=== PATIENT | male | born 1990 | race Caucasian/White ===

== ENCOUNTER → 2017-04-27 | Outpatient (CLI) | payer OTHER ==
--- NOTE | 2017-04-27 14:14 | CT ---
EXAMINATION TYPE: CT abdomen pelvis w con DATE OF EXAM: 04/27/2017 COMPARISON: NONE INDICATION: Gastrointestinal stromal tumor DLP: 475.30 mGycm, Automated exposure control for dose reduction was used. CONTRAST: 100 mL of Omnipaque 300. Study performed with Oral Contrast TECHNIQUE: Axial images were obtained from above the diaphragm to the pubic rami in the axial plane a t 5 mm thick sections. Reconstructed images are reviewed on the computer in the coronal plane. FINDINGS: Limited CT sections are obtained the lung bases. The lung bases are clear. CT ABDOMEN: Stomach is incompletely distended with air and fluid. Wall thickening within the fundus a nd gastric cardia are not excluded. There is postsurgical changes in this region. Consider direct vis ualization. Liver: Normal Spleen: Normal Pancreas: Normal Adrenal glands: The adrenal glands are normal. Gallbladder: Normal Kidneys: No masses are evident. No hydronephrosis is present. No cysts are present. Delayed images were obtained through the kidneys, which remain unremarkable. Aorta: Vascular calcification is within the aorta. Inferior vena cava: Normal. CT PELVIS: Loops of bowel within the abdomen and pelvis are normal. There are loops of bowel which are incom pletely distended or lack oral contrast limiting their evaluation. No suspicious masses or thickening within loops of bowel are evident. Appendix: Not identified Urinary bladder: Normal. Genitourinary structures: Prostate appears unremarkable. Osseous structures: No suspicious lytic or sclerotic lesions. IMPRESSIONS: 1. There may be some thickening of the gastric wall in the fundus gastric cardia region. This may be due to incomplete distention. Consider direct visualization.
== END | disposition home or self-care (01) ==
LOC: RADCTMAIN 11:04
PROVIDERS: ATTEND Internal Medicine Hematology & Oncology
DX: C49.9 Malignant neoplasm of connective and soft tissue, unspecified (principal)
CPT/HCPCS: 74177; Q9967

== ENCOUNTER 2020-11-05 21:04 | Inpatient (IN) | payer MEDICAID, OTHER ==
--- NOTE | 2020-11-05 21:57 | ED ---
Psych HPI - General Chief Complaint: Psychiatric Symptoms Stated Complaint: Mental health Time Seen by Provider: 11/05/20 21:56 Source: patient, RN notes reviewed, old records reviewed Mode of arrival: ambulatory Limitations: no limitations - History of Present Illness Initial Comments: This is a 30-year-old male to the ER for evaluation patient presents today for evaluation regards to psychiatric evaluation. Patient presents under suicidal thoughts. Patient presents by the combined rail operator under petition for psychiatric evaluation and treatment MD Complaint: suicidal ideation, feels depressed -: unknown Associated Psychiatric Symptoms: depression, suicidal ideation History of same: Yes Quality: constant Improves With: none Worsens With: none Context: significant life stressor Associated Symptoms: denies other symptoms Treatments Prior to Arrival: placed on mental health hold If Self Harm: admits thoughts of self harm - Related Data Home Medications Medication Instructions Recorded Confirmed No Known Home Medications 11/05/20 11/05/20 Allergies Allergy/AdvReac Type Severity Reaction Status Date / Time Penicillins Allergy Rash/Hives Verified 11/05/20 22:36 Review of Systems ROS Statement: Those systems with pertinent positive or pertinent negative responses have been documented in the HPI. ROS Other: All systems not noted in ROS Statement are negative. Past Medical History Past Medical History: Cancer, GERD/Reflux, Pneumonia, Skin Disorder Additional Past Medical History / Comment(s): 3 weeks ago diagnosed with 8cm cyst behind gallbladder and pancreas, reports having a follow up with dr rincon scheduled Jun 13, had it removed in may 16 2015, took glevolax (oral chemo) stopped because it made him sick History of Any Multi-Drug Resistant Organisms: None Reported Past Surgical History: Appendectomy, Tonsillectomy Additional Past Surgical History / Comment(s): LT LEG INJURY-SX TENDON REPAIR AND SKIN GRAFT, GST removal in May 16 Past Anesthesia/Blood Transfusion Reactions: No Reported Reaction Additional Past Anesthesia/Blood Transfusion Reaction / Comment(s): Gets violent with anesthesia Past Psychological History: Anxiety, Bipolar, Depression, Schizophrenia Smoking Status: Current every day smoker Past Alcohol Use History: Daily Past Drug Use History: Marijuana - Past Family History Father History Unknown: Yes Mother History Unknown: Yes Additional Family Medical History / Comment(s): Grandfather with NHL and prostate cancer General Exam Limitations: no limitations General appearance: alert, in no apparent distress Head exam: Present: atraumatic, normocephalic, normal inspection Eye exam: Present: normal appearance, PERRL, EOMI. Absent: scleral icterus, conjunctival injection, periorbital swelling ENT exam: Present: normal exam, mucous membranes moist Neck exam: Present: normal inspection. Absent: tenderness, meningismus, lymphadenopathy Respiratory exam: Present: normal lung sounds bilaterally. Absent: respiratory distress, wheezes, rales, rhonchi, stridor Cardiovascular Exam: Present: normal rhythm, tachycardia, normal heart sounds. Absent: systolic murmur, diastolic murmur, rubs, gallop, clicks GI/Abdominal exam: Present: soft, normal bowel sounds. Absent: distended, tenderness, guarding, rebound, rigid Extremities exam: Present: normal inspection, full ROM, normal capillary refill. Absent: tenderness, pedal edema, joint swelling, calf tenderness Back exam: Present: normal inspection Neurological exam: Present: alert, oriented X3, CN II-XII intact Psychiatric exam: Present: normal affect, normal mood Skin exam: Present: warm, dry, intact, normal color. Absent: rash Course Vital Signs 11/05/20 21:51 Temperature 98.5 F Pulse Rate 112 H Respiratory 20 Rate Blood Pressure 152/81 O2 Sat by Pulse 96 Oximetry - Reevaluation(s) Reevaluation #1: 11/05/20 22:21 Medical record is reviewed Reevaluation #2: 11/06/20 03:50 Medical clear for psychiatric evaluation Reevaluation #3: 11/06/20 03:50 Seen and evaluate by psychiatry Medical Decision Making - Medical Decision Making 30 male seen evaluation psychiatry here in the ER will admit for inpatient psychiatric evaluation and treatment patient did have recent alcohol use, petition by the police department - Lab Data Lab Results 11/05/20 Range/Units 22:00 Urine Color Light Yellow Urine Appearance Clear (Clear) Urine pH 5.5 (5.0-8.0) Ur Specific [place] 1.008 (1.001-1.035) Urine Protein Negative (Negative) Urine Glucose (UA) Negative (Negative) Urine Ketones Negative (Negative) Urine Blood Negative (Negative) Urine Nitrite Negative (Negative) Urine Bilirubin Negative (Negative) Urine Urobilinogen <2.0 (<2.0) mg/dL Ur Leukocyte Esterase Trace H (Negative) Urine RBC <1 (0-5) /hpf Urine WBC 3 (0-5) /hpf Ur Squamous Epith Cells <1 (0-4) /hpf Hyaline Casts 6 H (0-2) /lpf Urine Mucus Occasional H (None) /hpf Urine Opiates Screen Not Detected (NotDetected) Ur Oxycodone Screen Not Detected (NotDetected) Urine Methadone Screen Not Detected (NotDetected) Ur Propoxyphene Screen Not Detected (NotDetected) Ur Barbiturates Screen Not Detected (NotDetected) U Tricyclic Antidepress Not Detected (NotDetected) Ur Phencyclidine Scrn Not Detected (NotDetected) Ur Amphetamines Screen Detected H (NotDetected) U Methamphetamines Scrn Detected H (NotDetected) U Benzodiazepines Scrn Not Detected (NotDetected) Urine Cocaine Screen Not Detected (NotDetected) U Marijuana (THC) Screen Detected H (NotDetected) Disposition Clinical Impression: Depression, Suicidal ideation Disposition: TRANSFER TO PSYCH HOSP/UNIT Condition: Fair Is patient prescribed a controlled substance at d/c from ED?: No Referrals: None,Stated [Primary Care Provider] - 1-2 days
[2020-11-05 22:22] LABS: Appearance,Urine Clear (Clear); Bilirubin,Urine Negative (Negative); Blood,Urine Negative (Negative); Color,Urine Light Yellow; Glucose,Urine (UA) Negative (Negative); Hyaline Casts,Urine 6 /lpf (0-2); Ketones,Urine Negative (Negative); Leukocyte Esterase,Urine Trace (Negative); Mucus,Urine Occasional /hpf; Nitrite,Urine Negative (Negative); PH, Urine 5.5 (5.0-8.0); Protein,Urine Negative (Negative); RBC,Urine <1 /hpf (0-5); Specific Gravity,Urine 1.008 (1.001-1.035); Squamous Epithelial Cell,Urine <1 /hpf (0-4); Urobilinogen,Urine <2.0 mg/dL (<2.0); WBC,Urine 3 /hpf (0-5)
[2020-11-05 22:47] LABS: Amphetamine Screen,Urine Detected (NotDetected); Barbiturate Screen,Urine Not Detected (NotDetected); Benzodiazepines Screen,Urine Not Detected (NotDetected); Cocaine Screen,Urine Not Detected (NotDetected); Methadone Screen, Urine Not Detected (NotDetected); Opiate Screen,Urine Not Detected (NotDetected); Oxycodone Screen, Urine Not Detected (NotDetected); Phencyclidine Screen,Urine Not Detected (NotDetected); Tricyclic Antidepressant,Urine Not Detected (NotDetected); Urn Cannabinoid Scrn Detected (NotDetected)
[2020-11-06] MEDS ORDERED: ACETAMINOPHEN TAB 325 MG TAB PO PRN (06:51)
[2020-11-06] MEDS ORDERED: MAG HYDROX/AL HYDROX/SIMETH 30 ML CUP PO PRN (06:51)
[2020-11-06] MEDS ORDERED: MAGNESIUM HYDROXIDE 2,400 MG/10 ML CUP PO PRN (06:51)
[2020-11-06] MEDS ORDERED: LORazepam 2 MG/ML INJ IM PRN (06:54)
[2020-11-06] MEDS ORDERED: HALOPERIDOL LACTATE 5 MG/ML 1 ML VIAL IM PRN (06:54)
[2020-11-06] MEDS ORDERED: haloperidoL 5 MG TAB PO PRN (06:54)
[2020-11-06] MEDS: NICOTINE 14MG/24HR PATCH TRANSDERM SCH ×2 (09:46→10:31)
[2020-11-06] MEDS ORDERED: MELATONIN 5 MG TABLET PO PRN (11:31)
--- NOTE | 2020-11-06 11:46 | P.HP ---
Psychiatric H&P - . H&P Date: 11/06/20 History & Physical: Allergies Allergy/AdvReac Type Severity Reaction Status Date / Time Penicillins Allergy Rash/Hives Verified 11/05/20 22:36 Vital Signs Temp 98.2 F 11/06/20 07:21 Pulse 90 11/06/20 07:21 Resp 16 11/06/20 07:21 BP 131/81 11/06/20 07:21 Pulse Ox 96 11/05/20 21:51 Intake & Output 11/05/20 11/06/20 11/06/20 18:59 06:59 18:59 Weight 77.111 kg 80.785 kg Laboratory Last Values Urine Color Light Yellow 11/05/20 22:00 Urine Appearance Clear (Clear) 11/05/20 22:00 Urine pH 5.5 (5.0-8.0) 11/05/20 22:00 Ur Specific [place] 1.008 (1.001-1.035) 11/05/20 22:00 Urine Protein Negative (Negative) 11/05/20 22:00 Urine Glucose (UA) Negative (Negative) 11/05/20 22:00 Urine Ketones Negative (Negative) 11/05/20 22:00 Urine Blood Negative (Negative) 11/05/20 22:00 Urine Nitrite Negative (Negative) 11/05/20 22:00 Urine Bilirubin Negative (Negative) 11/05/20 22:00 Urine Urobilinogen <2.0 mg/dL (<2.0) 11/05/20 22:00 Ur Leukocyte Esterase Trace (Negative) H 11/05/20 22:00 Urine RBC <1 /hpf (0-5) 11/05/20 22:00 Urine WBC 3 /hpf (0-5) 11/05/20 22:00 Ur Squamous Epith Cells <1 /hpf (0-4) 11/05/20 22:00 Hyaline Casts 6 /lpf (0-2) H 11/05/20 22:00 Urine Mucus Occasional /hpf (None) H 11/05/20 22:00 Urine Opiates Screen Not Detected (NotDetected) 11/05/20 22:00 Ur Oxycodone Screen Not Detected (NotDetected) 11/05/20 22:00 Urine Methadone Screen Not Detected (NotDetected) 11/05/20 22:00 Ur Propoxyphene Screen Not Detected (NotDetected) 11/05/20 22:00 Ur Barbiturates Screen Not Detected (NotDetected) 11/05/20 22:00 U Tricyclic Antidepress Not Detected (NotDetected) 11/05/20 22:00 Ur Phencyclidine Scrn Not Detected (NotDetected) 11/05/20 22:00 Ur Amphetamines Screen Detected (NotDetected) H 11/05/20 22:00 U Methamphetamines Scrn Detected (NotDetected) H 11/05/20 22:00 U Benzodiazepines Scrn Not Detected (NotDetected) 11/05/20 22:00 Urine Cocaine Screen Not Detected (NotDetected) 11/05/20 22:00 U Marijuana (THC) Screen Detected (NotDetected) H 11/05/20 22:00 Coronavirus (PCR) Not Detected (Not Detectd) 11/06/20 03:32 11/06/20 11:37 IDENTIFYING DATA: Patient is a 30-year-old male currently lives with his grandmother and house has no kids and is single. HPI: Patient presented to the hospital yesterday for suicidal thoughts and was apparently petitioned by the deputy sheriff generalist/bailiff. According to petition patient had claimed to the officer that he stated he wanted to shoot himself. Patient was positive for methamphetamine and marijuana in his UDS. He was seen pacing the hallways and agreeable to speak directly in the office. Patient appeared to be fairly cooperative and had a bright affect today. He states that he "was being stupid" and spoke about drinking fireball liquor at home by himself. He states that he had a "rough day" and also mentioned that he had a "rough year". He mentioned that his friend committed suicide over a year ago and also states that one of his really good friends of cancer in February. 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 He states that he does not have any suicidal thoughts and claims that he has never attempted suicide previously. He claims that at times he does feel depressed however denies any anxiety. He states that today he is feeling better and claims that he is not thinking about suicide at all. He states that he drank a whole bottle which was a pint of liquor to himself and claims that "I don't usually drink". He states that his sleep has been fair and appetite is good. Patient denies any suicidal or homicidal ideations intent or plan. At this time patient denies any auditory or visual hallucinations. Patient denies any flight of ideas racing thoughts and increased in goal directed behavior. He denies any history of manic symptoms in the past. Patient admits to using alcohol occasionally and binge drinks, he also states that he smokes marijuana approximately 1-2 times a week. He claims that he smokes cigarettes daily. She denies using any other recreational drug use including methamphetamine. PAST PSYCHIATRIC HISTORY: Patient states that he has a history of ADHD and depression. He claims that he was on Adderall in the past. Patient denies any previous psychiatric hospitalizations. He claims that he did see a therapist or a psychiatrist in the past for what he believes was "bipolar" however did not take any medications. Patient denies any history of suicide attempts in the past. PMH: GERD, cancer, skin disorder ALLERGIES: as per EMR CHEMICAL DEPENDENCY HISTORY: as per HPI FAMILY PSYCHIATRIC/SUBSTANCE USE HISTORY: denies SOCIAL HISTORY: Patient was born and raised in [place], [place]. He states that he completed high school and also did trade school afterwards. 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 He claims that he is currently single and lives with his grandma in the house and has no kids. He states that he has been to [facility] once for a DUI when he was 20 years old. MENTAL STATUS EXAM: General Appearance: Patient appears to be well-built, stated age is alert, directable, and attempts to cooperate. Bright affect and joking around at times. Patient appears to have poor hygiene and grooming. Behavior: Patient is seated without any agitated behavior. Joking around at times. Speech: Patient's speech is fluent and nonpressured. Mood/Affect: Patient reports their mood is depressed sometimes, affect is congruent and constricted. Suicidality/Homicidality: Patient denies having any homicidal ideation intent or plan. Denies any suicidal ideations intent or plan Perceptions: Patient denies any visual hallucinations and denies any auditory hallucinations Though content/process: There is no evidence of any delusional thought content and thought process is linear and goal-directed. Minimizing. Memory and concentration: AOX3, grossly intact for the purposes of this session. Can spell "WORLD" backwards Judgment and insight: poor STRENGTHS/WEAKNESSES: strength is that patient is resilient. Weakness is that patient has poor judgment and abuses substances INTELLECT: average IMPRESSIONS: Depressive disorder unspecified, rule out adjustment disorder with depressed mood vs. major depressive disorder versus substance-induced mood disorder History of ADHD Methamphetamine abuse Cannabis use disorder Nicotine dependence PLAN: -Patient is admitted under voluntary status to [facility] for stabilization of psychiatric symptoms and safety. Patient has signed adult voluntary form and medication consent and is placed in patient's chart. -Medications : Will start patient on Wellbutrin 100 mg daily for mood. Melatonin 5 mg daily at bedtime when necessary for insomnia. -Ativan and Haldol PRN for agitation/aggression -CIWA protocol with Ativan PRN for ETOH withdrawal -Patient was counselled on substance abuse and desired to cut back on use. Patient was fairly superficial about that and did not want to go to rehab. -Patient was informed of the risks, benefits and side effects of the medication and patient verbally consented to taking the medications. Patient signed med consent form and was placed in chart. -Internal Medicine consult to perform medical evaluation and physical. -NRT - nicotine patch -SW on board for discharge planning. Encourage patient to participate in groups to work on coping skills. property worker to recheck the patient's grandmother for further collateral and to arrange for possible discharge tomorrow. Also will check to make sure that no guns or weapons are in the house.
[2020-11-06] MEDS: buPROPion SR 100 MG TABLET.ER PO SCH (11:48)
[2020-11-06] MEDS: LORazepam 1 MG TAB PO PRN ×2 (11:49→18:45)
--- NOTE | 2020-11-07 01:07 | P.CONS ---
History of Present Illness - Reason for Consult Consult date: 11/07/20 - History of Present Illness The patient is a 30-year-old male with no known PMH who was brought into the emergency room after he was found intoxicated with suicidal ideation. Patient reports that he was drinking in his garage where he may have "passed out" and expressed some suicidal ideation. She denied any history of depression or any plans on harming himself. He also denied any additional past medical history and does not take any medications. Denies additional complaints. He denied chest discomfort, shortness of breath, fever, chills, nausea, vomiting, abdominal pain, diarrhea. Reports that he only drinks socially and is not a daily drinker. Denied drug use despite the positive urine toxicology. Review of Systems Pertinent positives and negatives as discussed in HPI, a complete review of systems was performed and all other systems are negative. 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 History of Any Multi-Drug Resistant Organisms: None Reported Past Surgical History: Appendectomy, Tonsillectomy Additional Past Surgical History / Comment(s): LT LEG INJURY-SX TENDON REPAIR AND SKIN GRAFT, GST removal in May 16, right ankle fx, surgery with hardware, Past Anesthesia/Blood Transfusion Reactions: No Reported Reaction Additional Past Anesthesia/Blood Transfusion Reaction / Comm: Gets violent with anesthesia Past Psychological History: Anxiety, Bipolar, Depression, Schizophrenia Additional Psychological History / Comment(s): TAKES XANAX, CELEXA, patient denies any home medications 11-06-2020 Smoking Status: Current every day smoker Past Alcohol Use History: Daily Additional Past Alcohol Use History / Comment(s): STARTED SMOKING AT AGE 16,SMOKED 1/2 PPD Past Drug Use History: Marijuana Additional Drug Use History / Comment(s): Patient reported drinks "a few times a month, 3-4 beers" when he drinks. - Past Family History Father History Unknown: Yes Mother History Unknown: Yes Additional Family Medical History / Comment(s): Grandfather with NHL and prostate cancer Medications and Allergies Home Medications Medication Instructions Recorded Confirmed Type No Known Home Medications 11/05/20 11/06/20 History Allergies Allergy/AdvReac Type Severity Reaction Status Date / Time Penicillins Allergy Severe Rash/Hives Verified 11/06/20 13:40 Physical Exam Vitals: Vital Signs Temp Pulse Resp BP 11/06/20 15:54 95 16 148/86 11/06/20 12:25 90 137/95 11/06/20 11:50 114 H 150/94 11/06/20 07:21 98.2 F 90 16 131/81 Intake and Output 11/06/20 11/06/20 11/06/20 06:59 14:59 22:59 Other: Weight 80.785 kg General: non toxic, no distress, appears at stated age, normal weight Derm: no unusual rashes/lesions no unusual ecchymoses, warm, dry Head: atraumatic, normocephalic, symmetric Eyes: EOMI, no lid lag, anicteric sclera, pupils equal round reactive to light ENT: Nose and ears atraumatic, no thrush, no pharyngeal erythema Neck: No thyromegaly, no cervical lymphadenopathy, trachea midline, supple Mouth: no lip lesion, mucus membranes moist Cardiovascular: S1S2 reg, no murmur, positive posterior tibial pulse bilateral, no edema, capillary refill less than 2 seconds Lungs: CTA bilateral, no rhonchi, no rales , no accessory muscle use Abdominal: soft, nontender to palpation, no guarding, no appreciable organomegaly, normal bowel sounds Ext: no gross muscle atrophy, muscle strength 5 out of 5 in all 4 extremities grossly, no contractures, Neuro: CN II-XI grossly intact, light touch intact all 4 extremities, finger to nose within normal limits, Psych: Alert, oriented, appropriate affect Results Labs: Abnormal Lab Results - Last 24 Hours (Table) 11/05/20 Range/Units 22:00 Ur Leukocyte Esterase Trace H (Negative) Hyaline Casts 6 H (0-2) /lpf Urine Mucus Occasional H (None) /hpf Ur Amphetamines Screen Detected H (NotDetected) U Methamphetamines Scrn Detected H (NotDetected) U Marijuana (THC) Screen Detected H (NotDetected) Assessment and Plan Plan: Depression with suicidal ideation -As per psychiatry Alcohol and polysubstance abuse -Advised on importance of cessation Thank you for allowing us to participate in the care of this patient. We will follow peripherally. Do not hesitate to contact us with questions. Someone can be reached from the [facility] hospitalist group at all hours of the day at [phone].
[2020-11-07 07:02] VITALS: BP 130/70; PULSE 77; RESP 18; TEMP 97.8
[2020-11-07 08:09] LABS: Basophils % (A) 0 %; Eosinophils # (A) 0.2 k/uL (0-0.7); Eosinophils % (A) 2 %; HCT 50.5 % (39.0-53.0); HGB 17.7 gm/dL (13.0-17.5); Lymphocytes # (A) 1.6 k/uL (1.0-4.8); Lymphocytes % (A) 19 %; MCH 32.7 pg (25.0-35.0); MCV 93.5 fL (80.0-100.0); Mean Platelet Volume 7.7; Monocytes # (A) 0.6 k/uL (0-1.0); Monocytes % (A) 8 %; Neutrophils # (A) 5.9 k/uL (1.3-7.7); Neutrophils % (A) 69 %; Platelet Count 266 k/uL (150-450); RDW 12.1 % (11.5-15.5); WBC 8.5 k/uL (3.8-10.6)
[2020-11-07] MEDS: buPROPion SR 100 MG TABLET.ER PO SCH (08:22)
[2020-11-07] MEDS: NICOTINE 14MG/24HR PATCH TRANSDERM SCH (08:23)
[2020-11-07 08:41] LABS: ALT 90 U/L (4-49); AST 63 U/L (17-59); African American GFR (CKD) >90 (>60 ml/min/1.73 sqM); Albumin 4.8 g/dL (3.5-5.0); Alkaline Phosphatase 88 U/L (38-126); Anion Gap 9 mmol/L; Blood Urea Nitrogen 13 mg/dL (9-20); Calcium 9.7 mg/dL (8.4-10.2); Carbon Dioxide 30 mmol/L (22-30); Chloride 100 mmol/L (98-107); Glucose 105 mg/dL (74-99); Non-African American GFR(CKD) 83 (>60 ml/min/1.73 sqM); Potassium 4.8 mmol/L (3.5-5.1); Sodium 139 mmol/L (137-145); Total Bilirubin 1.4 mg/dL (0.2-1.3); Total Protein 7.6 g/dL (6.3-8.2)
[2020-11-07] MEDS ORDERED: busPIRone HCl 10 MG TAB PO STA (09:47)
--- NOTE | 2020-11-07 10:03 | P.DS ---
Providers Date of admission: 11/06/20 06:38 Expected date of discharge: 11/07/20 Attending physician: Power Larose MD Consults: 11/06/20 06:51 Consult Physician Routine Consulting Provider: Naida Physician Consult Reason/Comments: medical H and P Do you want consulting provider notified?: Yes Primary care physician: Stated None - Discharge Diagnosis(es) (1) Depressive disorder Current Visit: Yes Status: Acute Priority: High (2) History of ADHD Current Visit: Yes Status: Acute Priority: Low (3) Anxiety disorder Current Visit: Yes Status: Acute Priority: Medium (4) Methamphetamine abuse Current Visit: Yes Status: Acute Priority: Medium (5) Cannabis use disorder, mild, abuse Current Visit: Yes Status: Acute Priority: Medium (6) Nicotine dependence Current Visit: Yes Status: Acute Priority: Low Hospital Course: Admission HPI: Admission note was completed by lyric writer "Patient is a 30-year-old male currently lives with his grandmother and house has no kids and is single. Patient presented to the hospital yesterday for suicidal thoughts and was apparently petitioned by the chief deputy sheriff. According to petition patient had claimed to the officer that he stated he wanted to shoot himself. Patient was positive for methamphetamine and marijuana in his UDS. He was seen pacing the hallways and agreeable to speak directly in the office. Patient appeared to be fairly c ooperative and had a bright affect today. He states that he "was being stupid" and spoke about drinking fireball liquor at home by himself. He states that he had a "rough day" and also mentioned that he had a "rough year". He mentioned that his friend committed suicide over a year ago and also states that one of his really good friends of cancer in February. 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 He states that he does not have any suicidal thoughts and claims that he has never attempted suicide previously. He claims that at times he does feel depressed however denies any anxiety. He states that today he is feeling better and claims that he is not thinking about suicide at all. He states that he drank a whole bottle which was a pint of liquor to himself and claims that "I don't usually drink". He states that his sleep has been fair and appetite is good. Patient denies any suicidal or homicidal ideations intent or plan. At this time patient denies any auditory or visual hallucinations. Patient denies any flight of ideas racing thoughts and increased in goal directed behavior. He denies any history of manic symptoms in the past. Patient admits to using alcohol occasionally and binge drinks, he also states that he smokes marijuana approximately 1-2 times a week. He claims that he smokes cigarettes daily. She denies using any other recreational drug use including methamphetamine." Hospital course: Upon admission to the unit patient was initially depressed. Patient was however directable and agreeable to commence treatment and signed adult voluntary form. Patient got along well with other patients on the unit and followed unit protocol. Patient was compliant with the medications and denied any side effects throughout hospital course. Patient was started on Wellbutrin 100 mg daily for mood. Patient was also started on BuSpar 20 mg twice a day for anxiety and melatonin for sleep. Patient spoke of his stressors and engaged in therapy both group and individual. Patient was also seen by medical team for history and physical exam. Throughout the course of the hospitalization patient gradually improved with regards to mood, anxiety, sleep and became more future oriented with improved insight and judgment. On the day of discharge patient d enied any suicidal or homicidal ideations intent or plan denied any auditory or visual hallucinations. Patient endorsed wanting to live for his health and future. The patient denied any access to guns or weapons. Patient denied any paranoia and did not endorse any delusions. Patient does have a significant history of substance abuse and was counseled on abstaining from all substances including alcohol and marijuana. Patient was offered however declined inpatient substance-abuse rehab. Patient was also counseled on the medications and need for regular compliance and was encouraged to follow-up with their outpatient appointment for mental health and also for primary care. Prior to discharge a family meeting will be arranged by social worker psychiatric with patient's grandmother to answer any questions and ensure safety upon discharge. Mental status exam: General Appearance: Patient appears to be well built, stated age is alert, pleasant, and cooperative. Patient is in no acute distress and has improved hygiene and grooming Behavior: Patient is calmly seated without any agitated behavior. Speech: Patient's speech is fluent and nonpressured. Mood/Affect: Patient reports their mood is "better", affect is congruent and euthymic. Suicidality/Homicidality: Patient denies having any suicidal or homicidal ideation intent or plan. Perceptions: Patient denies any auditory or visual hallucinations. Though content/process: There is no evidence of any delusional thought content and thought process is linear and goal-directed. more future oriented Memory and concentration: AOX3, grossly intact for the purposes of this session. Can spell "WORLD" backwards correctly. Judgment and insight: improved with guarded prognosis Impression: Depressive disorder unspecified, rule out adjustment disorder with depressed mood versus major depressive disorder versus substance-induced mood disorder History of ADHD Anxiety disorder Methamphetamine abuse Cannabis use disorder Nicotine dependence Plan: -Continue with discharge today as patient has improved and stabilized psychiatrically and is not currently an imminent threat to himself and/or others. Patient will remain at chronically elevated risk for harm to self and/or others due to his impulsivity and polysubstance abuse. -Continue medications: Wellbutrin 100 mg daily for mood, melatonin 5 mg daily at bedtime when necessary for insomnia, BuSpar 5 mg twice a day for anxiety. -Patient was counseled on the need for medication compliance and appropriate follow-up at mental health and also primary care for medical issues. Patient verbalized understanding and agreed. -Social work to arrange for and conduct family meeting with patient's grandmother to ensure safety upon discharge and answer any questions/concerns. Social work also to arrange for patients follow up appointments for psychiatric care along with follow up with primary care provider. -Patient counseled on abstaining from recreational drugs and marijuana and alcohol. Was informed/educated on the adverse effects on their physical and mental health. Patient verbally agreed and understood. Patient was offered substance abuse treatment however declined at this time. -Patient was instructed to return to the hospital or seek immediate medical care if their psychiatric or medical symptoms do worsen or reoccur. Allergies Allergy/AdvReac Type Severity Reaction Status Date / Time Penicillins Allergy Severe Rash/Hives Verified 11/06/20 13:40 Laboratory Results WBC 8.5 k/uL (3.8-10.6) 11/07/20 07:49 RBC 5.40 m/uL (4.30-5.90) 11/07/20 07:49 Hgb 17.7 gm/dL (13.0-17.5) H 11/07/20 07:49 Hct 50.5 % (39.0-53.0) 11/07/20 07:49 MCV 93.5 fL (80.0-100.0) 11/07/20 07:49 MCH 32.7 pg (25.0-35.0) 11/07/20 07:49 MCHC 35.0 g/dL (31.0-37.0) 11/07/20 07:49 RDW 12.1 % (11.5-15.5) 11/07/20 07:49 Plt Count 266 k/uL (150-450) 11/07/20 07:49 MPV 7.7 11/07/20 07:49 Neutrophils % 69 % 11/07/20 07:49 Lymphocytes % 19 % 11/07/20 07:49 Monocytes % 8 % 11/07/20 07:49 Eosinophils % 2 % 11/07/20 07:49 Basophils % 0 % 11/07/20 07:49 Neutrophils # 5.9 k/uL (1.3-7.7) 11/07/20 07:49 Lymphocytes # 1.6 k/uL (1.0-4.8) 11/07/20 07:49 Monocytes # 0.6 k/uL (0-1.0) 11/07/20 07:49 Eosinophils # 0.2 k/uL (0-0.7) 11/07/20 07:49 Basophils # 0.0 k/uL (0-0.2) 11/07/20 07:49 Sodium 139 mmol/L (137-145) 11/07/20 07:49 Potassium 4.8 mmol/L (3.5-5.1) 11/07/20 07:49 Chloride 100 mmol/L (98-107) 11/07/20 07:49 Carbon Dioxide 30 mmol/L (22-30) 11/07/20 07:49 Anion Gap 9 mmol/L 11/07/20 07:49 BUN 13 mg/dL (9-20) 11/07/20 07:49 Creatinine 1.17 mg/dL (0.66-1.25) 11/07/20 07:49 Est GFR (CKD-EPI)AfAm >90 (>60 ml/min/1.73 sqM) 11/07/20 07:49 Est GFR (CKD-EPI)NonAf 83 (>60 ml/min/1.73 sqM) 11/07/20 07:49 Glucose 105 mg/dL (74-99) H 11/07/20 07:49 Calcium 9.7 mg/dL (8.4-10.2) 11/07/20 07:49 Total Bilirubin 1.4 mg/dL (0.2-1.3) H 11/07/20 07:49 AST 63 U/L (17-59) H 11/07/20 07:49 ALT 90 U/L (4-49) H 11/07/20 07:49 Alkaline Phosphatase 88 U/L (38-126) 11/07/20 07:49 Total Protein 7.6 g/dL (6.3-8.2) 11/07/20 07:49 Albumin 4.8 g/dL (3.5-5.0) 11/07/20 07:49 TSH 1.750 mIU/L (0.465-4.680) 11/07/20 07:49 Urine Color Light Yellow 11/05/20 22:00 Urine Appearance Clear (Clear) 11/05/20 22:00 Urine pH 5.5 (5.0-8.0) 11/05/20 22:00 Ur Specific [place] 1.008 (1.001-1.035) 11/05/20 22:00 Urine Protein Negative (Negative) 11/05/20 22:00 Urine Glucose (UA) Negative (Negative) 11/05/20 22:00 Urine Ketones Negative (Negative) 11/05/20 22:00 Urine Blood Negative (Negative) 11/05/20 22:00 Urine Nitrite Negative (Negative) 11/05/20 22:00 Urine Bilirubin Negative (Negative) 11/05/20 22:00 Urine Urobilinogen <2.0 mg/dL (<2.0) 11/05/20 22:00 Ur Leukocyte Esterase Trace (Negative) H 11/05/20 22:00 Urine RBC <1 /hpf (0-5) 11/05/20 22:00 Urine WBC 3 /hpf (0-5) 11/05/20 22:00 Ur Squamous Epith Cells <1 /hpf (0-4) 11/05/20 22:00 Hyaline Casts 6 /lpf (0-2) H 11/05/20 22:00 Urine Mucus Occasional /hpf (None) H 11/05/20 22:00 Urine Opiates Screen Not Detected (NotDetected) 11/05/20 22:00 Ur Oxycodone Screen Not Detected (NotDetected) 11/05/20 22:00 Urine Methadone Screen Not Detected (NotDetected) 11/05/20 22:00 Ur Propoxyphene Screen Not Detected (NotDetected) 11/05/20 22:00 Ur Barbiturates Screen Not Detected (NotDetected) 11/05/20 22:00 U Tricyclic Antidepress Not Detected (NotDetected) 11/05/20 22:00 Ur Phencyclidine Scrn Not Detected (NotDetected) 11/05/20 22:00 Ur Amphetamines Screen Detected (NotDetected) H 11/05/20 22:00 U Methamphetamines Scrn Detected (NotDetected) H 11/05/20 22:00 U Benzodiazepines Scrn Not Detected (NotDetected) 11/05/20 22:00 Urine Cocaine Screen Not Detected (NotDetected) 11/05/20 22:00 U Marijuana (THC) Screen Detected (NotDetected) H 11/05/20 22:00 Coronavirus (PCR) Not Detected (Not Detectd) 11/06/20 03:32 Vital Signs Temp 97.8 F 11/07/20 06:40 Pulse 77 11/07/20 06:40 Resp 18 11/07/20 06:40 BP 130/70 11/07/20 06:40 Pulse Ox 96 11/05/20 21:51 Intake & Output 11/06/20 11/07/20 11/07/20 18:59 06:59 18:59 Weight 80.785 kg Patient Condition at Discharge: Stable Plan - Discharge Summary Discharge Rx Participant: No New Discharge Prescriptions: New Nicotine 14Mg/24Hr Patch [Habitrol] 1 patch TRANSDERM DAILY 14 Days patch Melatonin 5 mg PO HS PRN 30 Days tablet PRN Reason: Anxiety busPIRone HCl [Buspar] 20 mg PO BID PRN 30 Days tab PRN Reason: Anxiety buPROPion SR [Wellbutrin SR] 100 mg PO DAILY 30 Days tablet.er Discharge Medication List Melatonin 5 mg PO HS PRN 30 Days tablet 04/01/21 [Rx] Nicotine 14Mg/24Hr Patch [Habitrol] 1 patch TRANSDERM DAILY 14 Days patch 11/07/20 [Rx] buPROPion SR [Wellbutrin SR] 100 mg PO DAILY 30 Days tablet.er 11/07/20 [Rx] busPIRone HCl [Buspar] 20 mg PO BID PRN 30 Days tab 11/07/20 [Rx] Follow up Appointment(s)/Referral(s): None,Stated [Primary Care Provider] - 1-2 days Discharge Disposition: HOME SELF-CARE
== END 2020-11-07 13:31 | disposition home or self-care (01) | DRG 880 ==
LOC: EC 21:04 → 3MHU 11-06 06:38
PROVIDERS: ADMIT Psychiatry & Neurology Psychiatry; ATTEND Psychiatry & Neurology Psychiatry
DX: R45.851 Suicidal ideations (principal); F32.9 Major depressive disorder, single episode, unspecified; K21.9 Gastro-esophageal reflux disease without esophagitis; F41.9 Anxiety disorder, unspecified; F17.200 Nicotine dependence, unspecified, uncomplicated; F12.10 Cannabis abuse, uncomplicated; F15.10 Other stimulant abuse, uncomplicated; F20.9 Schizophrenia, unspecified; F31.9 Bipolar disorder, unspecified; G47.00 Insomnia, unspecified; Z56.0 Unemployment, unspecified; Z79.899 Other long term (current) drug therapy; Z80.42 Family history of malignant neoplasm of prostate; Z20.822 Contact with and (suspected) exposure to COVID-19
CPT/HCPCS: 80053; 80306; 81001; 82075; 83036; 84443; 85025; 87635; 99285